=== PATIENT | female | born 1945 | race Caucasian/White ===

== ENCOUNTER 2016-06-14 18:07 | Observation (INO) | payer MEDICARE ==
[~2016-06-14] VITALS: Ht 157.5 cm; Wt 75.0 kg
[2016-06-14] VITALS (7 sets, daily range): BP systolic 123–171; BP diastolic 62–78; PULSE 57–72; RESP 16–17; TEMP 97.8–98.4; O2SAT 97–99
[~2016-06-14 18:07] MED LIST: ASPI81TA82 PO; ENAL20TA81 PO; METF-324 PO; METHI10 PO; POLY10O RIGHT EYE; SIMV10TA OR; TAB-TAB PO
--- NOTE | 2016-06-14 19:09 | PD ---
HPI Chief Complaint: Chest Pain Time Seen by Provider: 19:05 Travel History International Travel<30 days: No Contact w/Intl Traveler<30days: No Traveled to known affect area: No History of Present Illness HPI 71-year-old female that presents to the ED for evaluation of chest pain and abdominal pain. Patient has had symptoms since today. Chest pain only started about an hour ago. Patient has been complaining today of burping and sensation that she has to of the bathroom to have a bowel movement but not actually going. Patient has a history of dementia. Power of manpower development specialist manager is here with patient and he provides most of the history is patient is not really good historian. Patient apparently started complaining of the chest pain about an hour ago and is what concerned the power of manpower development specialist manager. Patient did have a bowel movement today which was witnessed by the power of manpower development specialist manager. No blood. No nausea or vomiting. She has no history of abdominal surgeries. History of diabetes as well as thyroid problems as well as hypertension issues. No other medical problems. No history of heart disease. States compliance with medications. Patient did have recent cataract surgery on the right eye about 2 weeks ago. Allergies to codeine. Patient has not been given anything for this. Patient's pain is 5 out of 10. Per patient the pain in the chest just comes and goes. PFSH Past Medical History Cancer: No Dementia: Yes Diabetes: Yes Diminished Hearing: No Glaucoma: No Hepatitis: No Hiatal Hernia: No Hypertension: Yes Immunizations Current: Yes Thyroid Disease: Yes Past Surgical History Gynecologic Surgery: Yes (UTERINE POLYPS) Pacemaker: No Other Surgery: Yes Social History Alcohol Use: No Tobacco Use: No Substance Use: No Allergies-Medications (Allergen,Severity, Reaction): Coded Allergies: Codeine (Verified Adverse Reaction, Intermediate, NAUSEA, 01/04/16) Reported Meds & Prescriptions Reported Meds & Active Scripts Active Polytrim Opth Drops (Polymyxin/Trimethoprim Sulfate) 10,000-0.1 Unit/Ml-% Soln 1 Drop RIGHT EYE Q6HR 7 Days Reported Atorvastatin (Atorvastatin Calcium) 20 Mg Tab 20 Mg PO HS Memantine 5 Mg Tab 5 Mg PO BID Methimazole 10 Mg Tab 20 Mg PO DAILY Donepezil 10 Mg Tab 10 Mg PO DAILY Aspirin 81 (Aspirin) 81 Mg Tabdr 81 Mg PO DAILY Vitamin D3 (Cholecalciferol) 2,000 Unit Cap 2,000 Units PO DAILY Lisinopril 20 Mg Tab 20 Mg PO DAILY Metformin (Metformin HCl) 1,000 Mg Tab 1,000 Mg PO BIDPC With meals Review of Systems Except as stated in HPI: all other systems reviewed are Neg Physical Exam Narrative GENERAL: SKIN: Warm and dry. HEAD: Atraumatic. Normocephalic. EYES: Pupils equal and round. No scleral icterus. No injection or drainage. ENT: No nasal bleeding or discharge. Mucous membranes pink and moist. Tongue is midline. No uvula deviation. NECK: Trachea midline. No JVD. CARDIOVASCULAR: Regular rate and rhythm. No murmurs, S3, S4. RESPIRATORY: No accessory muscle use. Clear to auscultation. Breath sounds equal bilaterally. GASTROINTESTINAL: Abdomen soft, non-tender, nondistended. Hepatic and splenic margins not palpable. MUSCULOSKELETAL: Extremities without clubbing, cyanosis, or edema. No obvious deformities. Full range of motion of the upper and lower extremities bilaterally. 2+ pulses bilaterally. NEUROLOGICAL: Awake and alert. No obvious cranial nerve deficits. Motor grossly within normal limits. Five out of 5 muscle strength in the arms and legs. Normal speech. PSYCHIATRIC: Appropriate mood and affect; insight and judgment normal. Data Data Last Documented VS Vital Signs Date Time Temp Pulse Resp B/P Pulse Ox O2 Delivery O2 Flow Rate FiO2 06/14/16 21:27 68 16 123/69 99 Room Air 06/14/16 18:12 98.4 Orders Electrocardiogram (06/14/16 18:59) Complete Blood Count With Diff (06/14/16 18:59) Comprehensive Metabolic Panel (06/14/16 18:59) Ckmb (Isoenzyme) Profile (06/14/16 18:59) Troponin I (06/14/16 18:59) Prothrombin Time / Inr (Pt) (06/14/16 18:59) Act Partial Throm Time (Ptt) (06/14/16 18:59) Lipase (06/14/16 18:59) Urinalysis - C+S If Indicated (06/14/16 18:59) Magnesium (Mg) (06/14/16 18:59) Thyroid Stimulating Hormone (06/14/16 18:59) Chest, Single Ap (06/14/16 18:59) Ct Abd/Pel W Iv Contrast(Rout) (06/14/16 18:59) Iv Access Insert/Monitor (06/14/16 18:59) Ecg Monitoring (06/14/16 18:59) Oximetry (06/14/16 18:59) Iohexol 350 Inj (Omnipaque 350 Inj) (06/14/16 21:05) Admit Order (Ed Use Only) (06/14/16 21:48) Labs Laboratory Tests Test 06/14/16 19:28 White Blood Count 12.2 TH/MM3 Red Blood Count 3.94 MIL/MM3 Hemoglobin 12.5 GM/DL Hematocrit 37.4 % Mean Corpuscular Volume 94.9 FL Mean Corpuscular Hemoglobin 31.8 PG Mean Corpuscular Hemoglobin 33.5 % Concent Red Cell Distribution Width 13.6 % Platelet Count 255 TH/MM3 Mean Platelet Volume 9.3 FL Neutrophils (%) (Auto) 70.6 % Lymphocytes (%) (Auto) 21.0 % Monocytes (%) (Auto) 6.8 % Eosinophils (%) (Auto) 1.1 % Basophils (%) (Auto) 0.5 % Neutrophils # (Auto) 8.6 TH/MM3 Lymphocytes # (Auto) 2.6 TH/MM3 Monocytes # (Auto) 0.8 TH/MM3 Eosinophils # (Auto) 0.1 TH/MM3 Basophils # (Auto) 0.1 TH/MM3 CBC Comment DIFF FINAL Differential Comment Prothrombin Time 10.5 SEC Prothromb Time International 1.0 RATIO Ratio Activated Partial 21.2 SEC Thromboplast Time Sodium Level 139 MEQ/L Potassium Level 4.1 MEQ/L Chloride Level 103 MEQ/L Carbon Dioxide Level 26.7 MEQ/L Anion Gap 9 MEQ/L Blood Urea Nitrogen 17 MG/DL Creatinine 0.78 MG/DL Estimat Glomerular Filtration 72 ML/MIN Rate Random Glucose 129 MG/DL Calcium Level 8.9 MG/DL Magnesium Level 1.7 MG/DL Total Bilirubin 0.2 MG/DL Aspartate Amino Transf 17 U/L (AST/SGOT) Alanine Aminotransferase 19 U/L (ALT/SGPT) Alkaline Phosphatase 61 U/L Total Creatine Kinase 88 U/L Troponin I LESS THAN 0.02 NG/ML Total Protein 7.3 GM/DL Albumin 3.6 GM/DL Lipase 232 U/L Thyroid Stimulating Hormone 12.500 uIU/ML 3rd Gen [facility] Medical Decision Making Medical Screen Exam Complete: Yes Emergency Medical Condition: Yes Medical Record Reviewed: Yes Interpretation(s) CBC & BMP Diagram 06/14/16 19:28 LFTs and LIPase WNL TSH elevated Last Impressions Chest X-Ray 06/14/16 4059 Signed Impressions: Service Date/Time: , June 14, 2016 19:15 - CONCLUSION: 1. No acute abnormality is seen. 2. Suspected right upper chest mass deviating the trachea. The most common mass in this region would be related to enlargement of the right lobe of the thyroid. Jose Miguel Jackson MD CT abdomen negative for acute disease, gallstone and hernia noted. Differential Diagnosis Chest pain versus a typical chest pain versus ACS versus bowel obstruction versus gastroenteritis versus acute abdomen Narrative Course 71-year-old female that presents to the ED for evaluation of chest pain. Patient was properly examined and was found to have signs and symptoms of unclear etiology at this time. I recommend labs and imaging at this time. Patient is agreeable with this plan. Labs and imaging showed no sign of acute disease other than elevated TSH. This appears to be chronic. Dr. Topete from [facility] came here and evaluated the patient as he knows her well and he recommended that if everything was negative patient admitted to chest pain center. This was discussed with the family and patient were in agreement with admission to the chest pain center. Labs here were essentially unremarkable again. Initial EKG and troponin were negative. From symptoms this could be concerning for ACS. She does have a history of diabetes and high blood pressure as well as a murmur. She has not had a stress test since 2012. Family is in agreement with admission. Patient was admitted to chest pain center for chest pain rule out. Procedures EKG Prior to Arrival: No Diagnosis Primary Impression: Chest pain in adult Admitting Information Admitting Physician Requests: Observation Wan Eaton June 14, 2016 19:09
[2016-06-14] MEDS ORDERED: METF1000 PO (19:26)
[2016-06-14] MEDS ORDERED: LISI-515 PO (19:26)
[2016-06-14] MEDS ORDERED: MEMA1TAB PO (19:26)
[2016-06-14] MEDS ORDERED: DONE10TA7 PO (19:26)
[2016-06-14] MEDS ORDERED: ASPI-110 PO (19:26)
[2016-06-14] MEDS ORDERED: ATOR20TA15 PO (19:26)
[2016-06-14] MEDS ORDERED: METHI10 PO (19:26)
[2016-06-14] MEDS ORDERED: VITA2000 PO (19:26)
--- NOTE | 2016-06-14 19:52 | RADRPT ---
EXAM DATE/TIME: 06/14/2016 19:15 [facility] COMPARISON: No previous studies available for comparison. INDICATIONS : Chest tightness and pain. MEDICAL HISTORY : None. SURGICAL HISTORY : None. ENCOUNTER: Initial ACUITY: 1 day PAIN SCORE: 2/10 LOCATION: Bilateral chest FINDINGS: The heart size is normal. The lungs are grossly clear. No effusion is seen. There is d eviation of the trachea towards the left. There appears to be increased soft tissue density in the u pper chest on the right side. CONCLUSION: 1. No acute abnormality is seen. 2. Suspected right upper chest mass deviating the trachea. The most common mass in this region would be related to enlargement of the right lobe of the thyroid. Jose Miguel Jackson MD on June 14, 2016 at 19:43 Board Certified Radiologist. This report was verified electronically.
[2016-06-14 19:54] LABS: AUTOMATED NEUTROPHIL # 8.6 TH/MM3 (1.8-7.7); BASOPHIL # 0.1 TH/MM3 (0-0.2); BASOPHIL % 0.5 % (0.0-2.0); EOSINOPHIL # 0.1 TH/MM3 (0-0.4); EOSINOPHIL % 1.1 % (0.0-4.0); HEMATOCRIT 37.4 % (35.0-46.0); HEMO FLAGS DIFF FINAL; LYMPHOCYTE # 2.6 TH/MM3 (1.0-4.8); MEAN CELL VOLUME 94.9 FL (80.0-100.0); MEAN CORPUSCULAR HEMOGLOBIN 31.8 PG (27.0-34.0); MEAN CORPUSCULAR HGB CONC 33.5 % (32.0-36.0); MONO % 6.8 % (0.0-8.0); NEUT % 70.6 % (16.0-70.0); PLATELET COUNT 255 TH/MM3 (150-450); RED BLOOD COUNT 3.94 MIL/MM3 (4.00-5.30); RED CELL DISTRIBUTION WIDTH 13.6 % (11.6-17.2); WHITE BLOOD COUNT 12.2 TH/MM3 (4.0-11.0)
[2016-06-14 20:04] LABS: APTT (PATIENT) 21.2 SEC (24.3-30.1); PROTHROMBIN TIME - PATIENT 10.5 SEC (9.8-11.6)
[2016-06-14 20:39] LABS: ALT (GPT) 19 U/L (10-53); ANION GAP 9 MEQ/L (5-15); AST (GOT) 17 U/L (15-37); BICARBONATE 26.7 MEQ/L (21.0-32.0); BLOOD UREA NITROGEN 17 MG/DL (7-18); CHLORIDE 103 MEQ/L (98-107); GLOMERULAR FILTRATION RATE 72 ML/MIN (>89); MAGNESIUM 1.7 MG/DL (1.5-2.5); POTASSIUM 4.1 MEQ/L (3.5-5.1); SODIUM (NA) 139 MEQ/L (136-145)
[2016-06-14 20:49] LABS: ALKALINE PHOSPHATASE 61 U/L (45-117); TOTAL BILIRUBIN ADULT 0.2 MG/DL (0.2-1.0)
[2016-06-14 21:02] LABS: CREATINE KINASE 88 U/L (26-192)
[2016-06-14] MEDS ORDERED: IOHEXOL 350 MG/ML 10 ML VIAL (for RAD DIAG) IV ONE (21:05)
--- NOTE | 2016-06-14 21:37 | RADRPT ---
EXAM DATE/TIME: 06/14/2016 21:03 [facility] COMPARISON: CT ABDOMEN & PELVIS W/O CONTRAST, December 05, 2014, 6:35. INDICATIONS : Abdominal pain. IV CONTRAST: 100 cc Omnipaque 350 (iohexol) IV ORAL CONTRAST: No oral contrast ingested. RADIATION DOSE: 9.96 CTDIvol (mGy) MEDICAL HISTORY : Hypertension. Dementia. Diabetes mellitus type 2. SURGICAL HISTORY : Uterine polyp removal. ENCOUNTER: Initial ACUITY: 1 day PAIN SCALE: 5/10 LOCATION: Abdomen TECHNIQUE: Volumetric scanning of the abdomen and pelvis was performed. Using automated exposure control and adjustment of the mA and/or kV according to patient size, radiation dose was kept as low as reasonably achievable to obtain optimal diagnostic quality images. FINDINGS: The liver, spleen, pancreas and adrenal glands are normal. There is a 1.8 cm cyst at t he inferior right kidney. There are two small left renal stones seen in the collecting system measur ing up to 6 mm. No hydronephrosis is seen on either side. The ureters are clear. There are calcifie d gallstones seen in the gallbladder. There is a 1.4 cm peripherally calcified mass seen adjacent to the pancreatic tail almost certainly representing a splenic artery aneurysm. This was present previo usly and is unchanged. There are scattered atherosclerotic calcifications seen throughout the arteri al system. The patient has an anterior abdominal wall hernia in the midline containing segments of small bowel. The defect measures at least 7.5 cm in transverse dimension. There is no bowel dilatation. The her nika sac extends inferiorly to below the level of the pubic symphysis. The lung bases are clear. There is degenerative change throughout the lumbar spine. There appear to be old healed fracture deformities identified at the inferior pubic rami bilaterally. There appears to be some loss of height at the superior aspect of the L2 vertebral body. CONCLUSION: 1. Midline abdominal hernia containing small bowel and mesenteric fat. The hernia defect at the ante rior abdominal wall measures at least 7.5 cm in diameter. The hernia sac extends inferiorly below th e level of the iliac crest. This was present previously and appears similar. 2. Two nonobstructing small left renal stones. 3. Gallstones. Jose Miguel Jackson MD on June 14, 2016 at 21:22 Board Certified Radiologist. This report was verified electronically.
[2016-06-14] MEDS ORDERED: SODIUM CHLORIDE 0.9% FLUSH 10 ML FLUSH IV FLUSH PRN (22:00)
[2016-06-14] MEDS ORDERED: ACETAMINOPHEN 500 MG CPLT PO PRN (22:00)
[2016-06-14] MEDS ORDERED: ONDANSETRON HCL 4 MG/2 ML VIAL IV PRN (22:00)
[2016-06-14 22:20] LABS: BLOOD, URINE MOD (NEG); COMMENT (UR) CULT NOT INDICATED; CULTURE IF INDICATED CULT NOT INDICATED; GLUCOSE,URINE NEG (NEG); KETONE, URINE TRACE mg/dL (NEG); MUCUS URINE FEW /lpf (OCC); NITRITE,URINE NEG (NEG); PH, URINE 6.5 (5.0-8.5); SQUAMOUS EPITHELIAL CELL URINE 3 /hpf (0-5); URINE COLOR YELLOW (YELLW/STRAW)
[2016-06-14 22:52] LABS: CREATINE KINASE 71 U/L (26-192)
[2016-06-15] VITALS (9 sets, daily range): BP systolic 120–143; BP diastolic 58–65; PULSE 62–74; RESP 15–17; TEMP 96.2–98; O2SAT 96–100
[2016-06-15 02:06] LABS: CREATINE KINASE 38 U/L (26-192)
[2016-06-15] MEDS ORDERED: DONEPEZIL HCL 5 MG TAB PO SCH (09:00)
[2016-06-15] MEDS ORDERED: MEMANTINE HCL 5 MG TAB PO SCH (09:00)
[2016-06-15] MEDS ORDERED: ASPIRIN EC 81 MG TABEC PO SCH (09:00)
[2016-06-15] MEDS ORDERED: CHOLECALCIFEROL (VIT D3) 1000 UNIT TAB PO SCH (09:00)
[2016-06-15] MEDS ORDERED: SODIUM CHLORIDE 0.9% FLUSH 10 ML FLUSH IV FLUSH SCH (09:00)
[2016-06-15] MEDS ORDERED: LISINOPRIL 20 MG TAB PO SCH (09:00)
--- NOTE | 2016-06-15 09:44 | HHI.HP ---
[facility] Primary Care Physician Raz Escalona M.D. Chief Complaint "I don't remember." History of Present Illness This is a 71-year-old female with history of dementia that presents to ED via private vehicle with her DURABLE POWER OF ADMINISTRATOR OF HOME HEALTH and friend. Patient cannot recall why she is in the hospital. Denies having any discomfort anywhere body at this time. Her DURABLE POWER OF ADMINISTRATOR OF HOME HEALTH Luis came into the room and was able to give more information. He states that after eating spaghetti for dinner last evening around 5:00 she developed an abdominal pain and chest discomfort. He was concerned and brought her to the ED. While in the ED she began to burp and was starting to feel better. He states he counted 42 burps and after the 42nd burp discomfort completely resolved. And while he stayed in room he states that she did not complain of any further issues. She denies any abdominal pain or discomfort in her chest at this time. He is unaware of any history of coronary disease but states she has a heart murmur. He also states that she has a thyroid disorder and follows an detailer furniture for that. Review of Systems General: Patient is a poor historian with dementia and information is obtained through her as well as her durable polyp return he has been present. Patient denies fevers, chills recent, and recent travel HEENT: Patient denies headache, sore throat, difficulty swallowing. Cardiovascular: Has the chest discomfort as mentioned above. Denies sensation of heart beating rapidly or irregularly. No syncope. Respiratory: Denies shortness of breath or inspirational chest discomfort. Denies coughing wheezing or hemoptysis. GI: The durable power of criminal defense attorney Luis states that she had abdominal pain after eating spaghetti but resolved after burping 42 times. Patient denies nausea, vomiting, diarrhea,, bloody stools. She had a normal bowel movement yesterday per Luis. Musculoskeletal: Patient denies joint pain or edema. Denies calf pain or edema. Neurovascular: Patient denies numbness, tingling, weakness in extremities. Denies headache. Endocrine: Denies polyuria and polydipsia. Hematologic: Denies easy bruising. Skin: Denies rash or itching. Past Family Social History Allergies: Coded Allergies: Codeine (Verified Adverse Reaction, Intermediate, NAUSEA, 01/04/16) Past Medical History Hypertension, hyperthyroidism, diabetes, hyperlipidemia, dementia. Denies knowledge of CAD. Past Surgical History Unknown Reported Medications Reported Meds & Active Scripts Active Polytrim Opth Drops (Polymyxin/Trimethoprim Sulfate) 10,000-0.1 Unit/Ml-% Soln 1 Drop RIGHT EYE Q6HR 7 Days Reported Atorvastatin (Atorvastatin Calcium) 20 Mg Tab 20 Mg PO HS Memantine 5 Mg Tab 5 Mg PO BID Methimazole 10 Mg Tab 20 Mg PO DAILY Donepezil 10 Mg Tab 10 Mg PO DAILY Aspirin 81 (Aspirin) 81 Mg Tabdr 81 Mg PO DAILY Vitamin D3 (Cholecalciferol) 2,000 Unit Cap 2,000 Units PO DAILY Lisinopril 20 Mg Tab 20 Mg PO DAILY Metformin (Metformin HCl) 1,000 Mg Tab 1,000 Mg PO BIDPC With meals Active Ordered Medications Current Medications Medications (Trade) Dose Ordered Sig/Diaz Route Start Time Stop Time Status Last Admin (NS Flush) 2 ml UNSCH PRN IV FLUSH 06/14/16 22:00 (NS Flush) 2 ml BID IV FLUSH 06/15/16 09:00 (Tylenol) 500 mg Q4H PRN PO 06/14/16 22:00 (Zofran Inj) 4 mg Q6H PRN IV 06/14/16 22:00 (Lipitor) 20 mg HS PO 06/15/16 21:00 (Vitamin D3) 2,000 units DAILY PO 06/15/16 09:00 (Aricept) 10 mg DAILY PO 06/15/16 09:00 (Prinivil) 20 mg DAILY PO 06/15/16 09:00 (Namenda) 5 mg BID PO 06/15/16 09:00 (Ecotrin Ec) 81 mg DAILY PO 06/15/16 09:00 Family History Family history is unknown. Social History Patient's a lifetime nonsmoker. Denies alcohol or illicit drugs. She was alone but her friend stopped by multiple times a day. Physical Exam Vital Signs Vital Signs Date Time Temp Pulse Resp B/P Pulse Ox O2 Delivery O2 Flow Rate FiO2 06/15/16 07:33 97 21 06/15/16 07:06 96.7 63 16 140/65 99 06/15/16 04:00 96.8 72 15 120/58 98 06/15/16 00:00 97.6 74 17 136/61 98 06/14/16 23:54 62 06/14/16 22:46 97.8 68 16 136/62 98 06/14/16 22:39 98 06/14/16 22:32 65 16 150/65 98 06/14/16 21:27 68 16 123/69 99 Room Air 06/14/16 19:14 57 16 154/68 99 Room Air 06/14/16 18:12 98.4 72 17 171/78 97 Physical Exam GENERAL: This is a well-nourished, well-developed patient, in no apparent distress. Patient speaks in clear complete sentences. Patient is pleasant. HEENT: Head is atraumatic and normocephalic. Neck is supple without lymphadenopathy and trachea is midline. No JVD or carotid bruits. CARDIOVASCULAR: Regular rate and rhythm without murmurs, gallops, or rubs. RESPIRATORY: Clear to auscultation. Breath sounds equal bilaterally. No wheezes , rales, or rhonchi. Chest wall is nontender. No use of accessory muscles. GASTROINTESTINAL: Abdomen is nontender, nondistended. Abdomen soft. No obvious pulsatile mass or bruit. No CVA tenderness. Strong femoral pulses bilaterally. Normal bowel sounds in all quadrants. MUSCULOSKELETAL: Patient is moving upper and lower extremities freely. No calf tenderness or edema, no Homans sign. Strong pulses in upper and lower extremities. NEUROLOGICAL: Patient is alert and oriented to person and place but not to time. Cranial nerves 2-12 are grossly intact. No focal deficits and speech is clear. SKIN: No rash and turgor is normal. Laboratory Laboratory Tests Test 06/14/16 06/14/16 06/14/16 06/15/16 19:28 22:04 22:17 01:28 White Blood Count 12.2 Red Blood Count 3.94 Hemoglobin 12.5 Hematocrit 37.4 Mean Corpuscular Volume 94.9 Mean Corpuscular Hemoglobin 31.8 Mean Corpuscular Hemoglobin 33.5 Concent Red Cell Distribution Width 13.6 Platelet Count 255 Mean Platelet Volume 9.3 Neutrophils (%) (Auto) 70.6 Lymphocytes (%) (Auto) 21.0 Monocytes (%) (Auto) 6.8 Eosinophils (%) (Auto) 1.1 Basophils (%) (Auto) 0.5 Neutrophils # (Auto) 8.6 Lymphocytes # (Auto) 2.6 Monocytes # (Auto) 0.8 Eosinophils # (Auto) 0.1 Basophils # (Auto) 0.1 CBC Comment DIFF FINAL Differential Comment Prothrombin Time 10.5 Prothromb Time International 1.0 Ratio Activated Partial 21.2 Thromboplast Time Sodium Level 139 Potassium Level 4.1 Chloride Level 103 Carbon Dioxide Level 26.7 Anion Gap 9 Blood Urea Nitrogen 17 Creatinine 0.78 Estimat Glomerular Filtration 72 Rate Random Glucose 129 Calcium Level 8.9 Magnesium Level 1.7 Total Bilirubin 0.2 Aspartate Amino Transf 17 (AST/SGOT) Alanine Aminotransferase 19 (ALT/SGPT) Alkaline Phosphatase 61 Total Creatine Kinase 88 71 38 Troponin I LESS THAN 0.02 LESS THAN 0.02 LESS THAN 0.02 Total Protein 7.3 Albumin 3.6 Lipase 232 Thyroid Stimulating Hormone 12.500 3rd Gen Urine Color YELLOW Urine Turbidity CLEAR Urine pH 6.5 Urine Specific [place] GREATER THAN 1.050 Urine Protein 30 Urine Glucose (UA) NEG Urine Ketones TRACE Urine Occult Blood MOD Urine Nitrite NEG Urine Bilirubin NEG Urine Urobilinogen LESS THAN 2.0 Urine Leukocyte Esterase NEG Urine RBC 12 Urine WBC 3 Urine Squamous Epithelial 3 Cells Urine Mucus FEW Microscopic Urinalysis Comment CULT NOT INDICATED Result Diagram: 06/14/16192706/14/161927 Imaging Last 48 hours Impressions Chest X-Ray 06/14/161858 Signed Impressions: Service Date/Time: June 19:15 - CONCLUSION: 1. No acute abnormality is seen. 2. Suspected right upper chest mass deviating the trachea. The most common mass in this region would be related to enlargement of the right lobe of the thyroid. Jose Miguel Jackson MD Abdomen/Pelvis CT 06/14/161858 Signed Impressions: Service Date/Time: June 21:03 - CONCLUSION: 1. Midline abdominal hernia containing small bowel and mesenteric fat. The hernia defect at the anterior abdominal wall measures at least 7.5 cm in diameter. The hernia sac extends inferiorly below the level of the iliac crest. This was present previously and appears similar. 2. Two nonobstructing small left renal stones. 3. Gallstones. Jose Miguel Jackson MD Course EKG is sinus arrhythmia without significant ST segment depressions or elevations. Assessment and Plan Assessment and Plan * Atypical chest pain: Patient will be seen by Dr. Cervantes of cardiology and the chest pain center. Likely no further cardiac testing will be obtained. Patient cannot recall having the discomfort in her chest. * Abdominal pain: This has resolved. She does not remember having the abdominal pain. * Mass: CT describes a sided upper chest mass or tracheal deviation. Is able to review some records and she has history of a goiter. Unable to find records of any deviation of the trachea prior. Patient will be admitted to for healthcare hospitalist and Dr. Shaffer has agreed to set this patient for further evaluation of this. * Hypertension: Continue current medication. * Hyperlipidemia: Continue Medication. * Diabetes: Patient will be on sliding scale coverage while in the hospital. Further orders per Dr. Adhikari. Patient stable time. She is agreeable to this plan. I will also discuss this with her power of criminal defense attorney Luis. Kyle Iverson June 15, 2016 09:44
[2016-06-15] MEDS ORDERED: GLUCAGON 1 MG/ML VIAL IM/SQ PRN (09:45)
[2016-06-15] MEDS ORDERED: DEXTROSE 50% IN WATER 50 ML VIAL(D50) IV PRN (09:45)
[2016-06-15] MEDS: INSULIN ASPART SUPPLEMENTAL SCALE SQ SCH ×2 (11:00→16:00)
--- NOTE | 2016-06-15 15:28 | EKG ---
Date Performed: 06/15/2016 Time Performed: 01:21:16 PTAGE: 71 years EKG: Sinus rhythm POSSIBLE RIGHT VENTRICULAR CONDUCTION DELAY BORDERLINE ECG PREVIOUS TRACING : 06/14/2016 22.13 DOCTOR: Mustapha Ascencio Interpretating Date/Time 06/15/2016 15:25:10
--- NOTE | 2016-06-15 15:30 | EKG ---
Date Performed: 06/14/2016 Time Performed: 22:13:10 PTAGE: 71 years EKG: Sinus rhythm WITH SINUS ARRHYTHMIA NORMAL ECG PREVIOUS TRACING : 06/14/2016 18.16 DOCTOR: Mustapha Ascencio Interpretating Date/Time 06/15/2016 15:27:32
--- NOTE | 2016-06-15 15:36 | EKG ---
Date Performed: 06/14/2016 Time Performed: 18:16:21 PTAGE: 71 years EKG: Sinus rhythm WITH SINUS ARRHYTHMIA NORMAL ECG NO PREVIOUS TRACING DOCTOR: Mustapha Ascencio Interpretating Date/Time 06/15/2016 15:31:44
[2016-06-15] MEDS ORDERED: SIME1CAP17 PO (17:24)
--- NOTE | 2016-06-15 17:26 | HHI.DCPOC ---
Discharge Care Plan Diagnosis: (1) Gas pain (2) Thyroid mass (3) Tracheal deviation Goals to Promote Your Health * To prevent worsening of your condition and complications * To maintain your health at the optimal level Directions to Meet Your Goals Take your medications as prescribed Follow your dietary instruction Follow activity as directed Keep your appointments as scheduled Take your immunizations and boosters as scheduled If your symptoms worsen call your PCP, if no PCP go to Urgent Care Center or Emergency Room Smoking is Dangerous to Your Health. Avoid second hand smoke Call the 24-hour hour crisis hotline for domestic abuse at Luis Shaffer MD June 15, 2016 17:26
--- NOTE | 2016-06-15 17:46 | HHI.PR ---
Subjective Remarks NO CP OR ABDOMEN PAIN SHE AND CAREGIVER WANT TO GO HOME Objective Vitals HEART REG LUNG CTA ABD S/NT EXT NO EDEMA Vital Signs Date Time Temp Pulse Resp B/P Pulse Ox O2 Delivery O2 Flow Rate FiO2 06/15/16 17:39 96 21 06/15/16 16:00 98.0 69 16 143/65 96 06/15/16 15:28 67 06/15/16 11:13 96.2 66 16 123/58 100 06/15/16 09:30 62 06/15/16 07:33 97 21 06/15/16 07:06 96.7 63 16 140/65 99 06/15/16 04:00 96.8 72 15 120/58 98 06/15/16 00:00 97.6 74 17 136/61 98 06/14/16 23:54 62 06/14/16 22:46 97.8 68 16 136/62 98 06/14/16 22:39 98 06/14/16 22:32 65 16 150/65 98 06/14/16 21:27 68 16 123/69 99 Room Air 06/14/16 19:14 57 16 154/68 99 Room Air 06/14/16 18:12 98.4 72 17 171/78 97 Result Diagram: 06/14/16192706/14/161927 A/P Problem List: (1) Gas pain Status: Acute Plan: Pt is 71 with dementia, hyperthyroidism, known thyroid mass and tracheal deviation and dm. Here with her caregiver. after trying to eat dinner last night developed alot of abdomen pain radiating up to midchest. caregiver says after "42 burps" the pain was gone. I was asked to see her over abnormal cxr concerns I had long talk with pt caregiver who says she has a known thyroid mass with tracheal deviation and Dr Taylor monitors everything. they just saw her. They would like to go home now. she can take prn simethicone. f/u pcp. (2) Thyroid mass Status: Chronic (3) Tracheal deviation Status: Chronic Luis Shaffer MD June 15, 2016 17:46
[2016-06-15] MEDS ORDERED: ATORVASTATIN 20 MG TAB PO SCH (21:00)
== END 2016-06-15 18:04 | disposition home or self-care (01) ==
LOC: NEPE 18:07 → NEDA 21:49 → NEPFCDU 23:06
PROVIDERS: ADMIT Hospitalist; ATTEND Hospitalist
DX: R07.89 Other chest pain (principal); J39.8 Other specified diseases of upper respiratory tract; E07.89 Other specified disorders of thyroid; R10.9 Unspecified abdominal pain; E78.5 Hyperlipidemia, unspecified; I10 Essential (primary) hypertension; F03.90 Unspecified dementia, unspecified severity, without behavioral disturbance, psychotic disturbance, mood disturbance, and anxiety; E11.9 Type 2 diabetes mellitus without complications; Z88.5 Allergy status to narcotic agent; Z79.84 Long term (current) use of oral hypoglycemic drugs; Z79.82 Long term (current) use of aspirin
CPT/HCPCS: 71010; 74177; 80053; 81001; 82550; 82948; 83690; 83735; 84443; 84484; 85025; 85610; 85730; 93005; 99285; G0378; Q9967